=== PATIENT | female | born 1945 | race Caucasian/White ===

== ENCOUNTER → 2016-08-09 | Outpatient (REF) | payer MEDICARE, OTHER ==
[~2016-08-09] MED LIST: ASCO500T20 PO; CALC-696 PO; CHOL10002 PO; CYAN1TAB26 PO; ESCI20TA39 PO; FERR160T5 PO; LEVO100T7 PO; NAPR500T3 PO; SENN-75 PO; VITA400T9 PO; [UNRECOGNIZED DRUG - CODE] PO
== END ==
LOC: LAB 09:27
PROVIDERS: ATTEND Family Medicine
DX: R73.9 Hyperglycemia, unspecified (principal); E88.81 Metabolic syndrome and other insulin resistance
CPT/HCPCS: 83036

== ENCOUNTER → 2016-08-12 | Outpatient (CLI) | payer MEDICARE, OTHER ==
--- NOTE | 2016-08-13 12:35 | Diagnostic Imaging Report ---
EXAM: Bilateral Digital Screening Mammography, with computer aided detection system (CAD). DATE: August 12, 2016. COMPARISON: May 02, 2015. April 29, 2014. November 10, 2012. INDICATION: Breast cancer screening. FINDINGS: There are scattered fibroglandular densities. There are no suspicious findings in either breast. IMPRESSION: 1. No mammographic evidence of malignancy. Recommend annual screening mammography and clinical breast exam. ACR BI-RADS Category 2: Benign findings. Result letter will be mailed to the patient. Note: At least 10% of breast cancer is not imaged by mammography. Dictated by: Dictated on workstation # [id number]
== END ==
LOC: RAD 07:51
PROVIDERS: ATTEND Family Medicine
DX: Z12.31 Encounter for screening mammogram for malignant neoplasm of breast (principal)